=== PATIENT | female | born 1995 | race Caucasian/White ===

== ENCOUNTER 2016-07-29 22:13 | Emergency (ER) | payer BC, OTHER ==
[2016-07-29] MEDS ORDERED: HALDOL DEC100 MG/1 M IM (22:33)
[2016-07-29] MEDS ORDERED: COGENTIN PO (22:33)
[2016-07-29] MEDS ORDERED: LEXAPRO10 M2 PO (22:33)
[2016-07-29] MEDS ORDERED: HALOPERIDOL5 M1 PO ×2 (22:34→22:53)
[2016-07-29] MEDS ORDERED: DEPAKOTE ER500 M1 PO (22:34)
[2016-07-29] MEDS ORDERED: TRICOR145 M2 PO (22:34)
[2016-07-29] MEDS ORDERED: LAC PO (22:35)
[2016-07-29] MEDS ORDERED: SYNTHROID50 MC1 PO (22:37)
[2016-07-29] MEDS ORDERED: MIRALAX17 G2 PO (22:37)
[2016-07-29] MEDS ORDERED: PROTONIX40 M2 PO (22:37)
[2016-07-29] MEDS ORDERED: TYLENOL325 M2 PO (22:38)
[2016-07-29] MEDS ORDERED: MAALOX ADVANCE355 M2 PO (22:39)
[2016-07-29] MEDS ORDERED: DULCOLAX5 M1 PO (22:41)
[2016-07-29] MEDS ORDERED: VISTARIL50 M1 PO (22:42)
[2016-07-29] MEDS ORDERED: BENADRYL25 M3 PO (22:43)
[2016-07-29] MEDS ORDERED: ATIVAN1 M2 PO (22:43)
[2016-07-29] MEDS ORDERED: MILK OF MAGNESIA PO (22:43)
[2016-07-29] MEDS ORDERED: HALDOL5 MG/1 ML IM (22:44)
[2016-07-29] MEDS ORDERED: ZYPREXA5 M1 PO (22:52)
[2016-07-29] MEDS ORDERED: IBUPROFEN600 M1 PO (23:00)
[2016-07-29] MEDS ORDERED: XYLITOL PO (23:00)
[2016-07-29] MEDS ORDERED: LOPERAMIDE2 M2 PO (23:02)
[2016-07-29] MEDS ORDERED: SIMETHICONE80 M3 PO (23:04)
[2016-07-29] MEDS ORDERED: LORAZEPAM I2 MG/1 ML PO (23:05)
== END 2016-07-30 00:15 ==
LOC: EDMED 22:13
DX: T18.2XXA Foreign body in stomach, initial encounter (principal)

== ENCOUNTER 2016-10-14 21:20 | Emergency (ER) | payer BC ==
[~2016-10-14 21:20] MED LIST: ATIVAN1 M2 PO; BENADRYL25 M3 PO; COGENTIN PO; DEPAKOTE ER500 M1 PO; DULCOLAX5 M1 PO; HALDOL DEC100 MG/1 M IM; HALDOL5 MG/1 ML IM; HALOPERIDOL5 M1 PO; IBUPROFEN600 M1 PO; LAC PO; LEXAPRO10 M2 PO; LOPERAMIDE2 M2 PO; LORAZEPAM I2 MG/1 ML PO; MAALOX ADVANCE355 M2 PO; MILK OF MAGNESIA PO; MIRALAX17 G2 PO; PROTONIX40 M2 PO; SIMETHICONE80 M3 PO; SYNTHROID50 MC1 PO; TRICOR145 M2 PO; TYLENOL325 M2 PO; VISTARIL50 M1 PO; XYLITOL PO; ZYPREXA5 M1 PO
== END 2016-10-14 22:14 ==
LOC: EDMED 21:20
DX: K59.00 Constipation, unspecified (principal); E03.9 Hypothyroidism, unspecified; K21.9 Gastro-esophageal reflux disease without esophagitis; Z87.891 Personal history of nicotine dependence; Z79.890 Hormone replacement therapy; Z79.899 Other long term (current) drug therapy